=== PATIENT | male | born 1955 | race Caucasian/White ===

== ENCOUNTER 2023-08-26 18:57 | Observation (INO) ==
[2023-08-26] MEDS: NS 500 ML IV 500 ML IV ONE ×2 (19:29→19:56)
--- NOTE | 2023-08-26 19:30 | DR.ABDMALE ---
HPI <Sean Benson - Last Filed: 08/26/23 19:40> Time seen Time Seen by Provider: 08/26/23 19:28 PCP Primary Care Physician: LISA/Alverto Complaint Chief Complaint Doctors Comments: 68-year-old male presents for evaluation. Has been feeling poorly over the past week. Having several episodes of dizziness lightheadedness, worse when he stands and attempts to walk. Did have vomiting several episodes 2 days ago. No problems with his bowels or his bladder. He denies fevers or chills. Has been having heartburn, located at the epigastric region, off/on, burning sensation. Denies upper respiratory illness, no change in cough (he is a smoker). Was diagnosed with a aortic abdominal aneurysm approximately 1 year ago in [place], was told with it was small, has not had it evaluated since. Chief Complaint:: pt amb to triage with c/o dizziness that worsens when he stands up, heartburn, sleepy all the time, no energy, abd pain, pt reports [facility] but felt he could not wait until then, pt visably unsteady when walking, take to room 1 from triage Reviewed Nurses Notes Review: Yes Source History provided by:: Patient, spouse Mode of arrival Mode of Arrival: Ambulatory Timing Onset of Chief Complaint: 08/19/23 PMH <Sean Ocampolorenza - Last Filed: 08/26/23 19:40> PMH Past Medical History: Yes Past Medical History: Coronary Artery Disease, Dyslipidemia and Hypertension Past Medical History Comment: AAA, Bladder CA Past Surgical History: Yes Past Surgical History Comment: cardiac cath Family History History of Family Medical Conditions: Yes Family Medical History: Diabetes Mellitus, DC, Sudden Cardiac and Hypertension Social History Does patient currently use any type of tobacco product: Yes Have you used tobacco products in the last 12 months: Yes Type of Tobacco Use: Cigarettes Does any household member use tobacco: Yes Alcohol Use: None Do you use any recreational Drugs:: No Lives With: Spouse Lives Where: Home Infectious screening Have you traveled outside the country in the last 6 months?: No Isolation: Standard ROS <Sean Ocampolorenza - Last Filed: 08/26/23 19:40> Review of Systems Constitutional: Weakness Eyes: No Symptoms Reported ENTM: No Symptoms Reported Respiratoy: No Symptoms Reported Cardiovascular: No Symptoms Reported Gastrointestinal/Abdominal: Abdominal Pain, Nausea and Vomiting Genitourinary: No Symptoms Reported Neurological: Weakness and Dizziness Musculoskeletal: No Symptoms Reported Integumentary: No Symptoms Reported Hematologic/Lymphatic: No Symptoms Reported Psychiatric: No Symptoms Reported All Other Systems: Reviewed and Negative PE <Sean Benson - Last Filed: 08/26/23 19:40> Vital Signs Vital Signs: Temp Pulse Resp BP Pulse Ox O2 Del Method 08/26/23 23:00 95/63 08/26/23 23:00 70 22 98 08/26/23 22:45 74 21 97 08/26/23 22:40 74 21 98 08/26/23 22:40 93/53 08/26/23 22:30 76 16 98 08/26/23 22:20 76 18 96 08/26/23 22:20 95/57 08/26/23 22:15 79 20 96 08/26/23 22:00 76 17 95 08/26/23 22:00 90/55 08/26/23 21:45 78 17 96 08/26/23 21:40 81 18 97 08/26/23 21:40 97/57 08/26/23 21:30 77 16 97 08/26/23 21:20 77 20 96 08/26/23 21:20 94/58 08/26/23 21:15 73 20 97 08/26/23 21:04 72 19 98 08/26/23 21:04 91/56 08/26/23 21:04 91/56 08/26/23 21:02 82 20 98 08/26/23 20:45 79 28 H 98 08/26/23 20:40 77 19 98 08/26/23 20:40 91/53 08/26/23 20:30 77 21 97 08/26/23 20:20 78 24 96 08/26/23 20:20 86/60 08/26/23 20:15 80 27 H 97 08/26/23 20:00 85/55 08/26/23 20:00 77 22 96 08/26/23 19:47 80 96 08/26/23 19:47 82/51 08/26/23 19:46 81 95 08/26/23 19:30 78/53 08/26/23 19:10 71/44 08/26/23 19:09 97.6 F 100 H 18 86/54 95 Room Air General General Appearance: Alert and In No Apparent Distress Eyes Eye exam: PERRL and EOMI ENT ENT Exam: Normal Exam, Normal Oropharynx and TM's Normal Bilaterally Neck Neck Exam: Normal Inspection and Full ROM Respiratory Respiratory Exam: Normal Lung Sounds Bilat; negative Accessory Muscle Use or Respiratory Distress Cardiovascular Cardiovascular Exam: Regular Rate, Normal Rhythm and Normal Heart Sounds Abdominal Exam Abdominal Exam: Normal Bowel Sounds, Soft and Tenderness (central abdomen, no guarding or rebound. ) Back Back Exam: Normal Inspection; negative (R) CVA Tenderness or (L) CVA Tenderness Extremeties Extremities Exam: Normal Inspection and Full ROM; negative Edema Neurologic Neurological Exam: Alert, Oriented X3 and CN II-XII Intact; negative Motor Sensory Deficit Skin Skin Exam: Warm and Dry <Shilpa Varghese - Last Filed: 08/27/23 00:59> Vital Signs Vital Signs: Temp Pulse Resp BP Pulse Ox O2 Del Method 08/26/23 23:00 95/63 08/26/23 23:00 70 22 98 08/26/23 22:45 74 21 97 08/26/23 22:40 74 21 98 08/26/23 22:40 93/53 08/26/23 22:30 76 16 98 08/26/23 22:20 76 18 96 08/26/23 22:20 95/57 08/26/23 22:15 79 20 96 08/26/23 22:00 76 17 95 08/26/23 22:00 90/55 08/26/23 21:45 78 17 96 08/26/23 21:40 81 18 97 08/26/23 21:40 97/57 08/26/23 21:30 77 16 97 08/26/23 21:20 77 20 96 08/26/23 21:20 94/58 08/26/23 21:15 73 20 97 08/26/23 21:04 72 19 98 08/26/23 21:04 91/56 08/26/23 21:04 91/56 08/26/23 21:02 82 20 98 08/26/23 20:45 79 28 H 98 08/26/23 20:40 77 19 98 08/26/23 20:40 91/53 08/26/23 20:30 77 21 97 08/26/23 20:20 78 24 96 08/26/23 20:20 86/60 08/26/23 20:15 80 27 H 97 08/26/23 20:00 85/55 08/26/23 20:00 77 22 96 08/26/23 19:47 80 96 08/26/23 19:47 82/51 08/26/23 19:46 81 95 08/26/23 19:30 78/53 08/26/23 19:10 71/44 08/26/23 19:09 97.6 F 100 H 18 86/54 95 Room Air COURSE <Seantommy Benson - Last Filed: 08/26/23 19:40> Treatment Treatment: 68-year-old male, ill over the past week, having episodes of lightheadedness dizziness, worse with standing. At triage patient had a bit of an elevated blood pressure, but when he stood up to come back to the room, he dropped his blood pressure significantly. Currently no distress. Workup initiated. Patient given IV fluids. Patient will be signed over to my relief physician. <Shilpa Varghese - Last Filed: 08/27/23 00:59> Treatment Treatment: 68-year-old male, ill over the past week, having episodes of lightheadedness dizziness, worse with standing. At triage patient had a bit of an elevated blood pressure, but when he stood up to come back to the room, he dropped his blood pressure significantly. Currently no distress. Workup initiated. Patient given IV fluids. Patient will be signed over to my relief physician. Pt remains hypotensive although he's resting comfortably. CT c/w duodenitis; admits with abx and re-hydration. ROR <Sean Benson - Last Filed: 08/26/23 19:40> Labs Reviewed 08/26/23 19:25 08/26/23 19:56 Laboratory: WBC 9.7 X10^3/uL (3.6-10.0) 08/26/23 19:25 RBC 4.73 X10^6/uL (4.7-6.0) 08/26/23 19:25 Hgb 15.3 g/dL (13.5-18.0) 08/26/23 19:25 Hct 44.6 % (42.0-54.0) 08/26/23 19:25 MCV 94.3 fL (80.0-100.0) 08/26/23 19:25 MCH 32.4 pg (27.0-34.0) 08/26/23: MCHC 34.3 g/dL (33.0-35.0) 08/26/23 19:25 RDW 13.9 % (11.6-16.5) 08/26/23: Plt Count 316 X10^3/uL (150.0-450.0) 08/26/23 19:25 MPV 7.9 fL (7.4-11.0) 08/26/23 19:25 Neut % (Auto) 56.1 % (42.0-75.0) 08/26/23: Lymph % (Auto) 32.4 % (21.0-51.0) 08/26/23: [place] % (Auto) 9.2 % (0.0-13.0) 08/26/23 19:25 Eos % (Auto) 1.2 % (0.9-2.9) 08/26/23 19:25 Baso % (Auto) 1.1 % (0.2-1.0) H 08/26/23 19:25 Neut # (Auto) 5.5 x10^3/uL (2.2-4.8) H 08/26/23 19:25 Lymph # (Auto) 3.1 X10^3/uL (1.3-2.9) H 08/26/23 19:25 [place] # (Auto) 0.9 x10^3/uL (0.3-0.8) H 08/26/23 19:25 Eos # (Auto) 0.1 x10^3/uL (0.0-0.2) 08/26/23:25 Baso # (Auto) 0.1 X10^3/uL (0.0-0.1) 08/26/23: Absolute Nucleated RBC 0.2 /100WBC 08/26/23 19:25 Sodium 132 mmol/L (136-145) L 08/26/23:56 Corrected Sodium 132 mmol/L (136-145) L 08/26/23 19:56 Potassium 4.5 mmol/L (3.5-5.1) 08/26/23 19:56 Chloride 99 mmol/L (98-107) 08/26/23 19:56 Carbon Dioxide 28.0 mmol/L (21-32) 08/26/23 19:56 BUN 48 mg/dL (7-18) H 08/26/23 19:56 Creatinine 2.15 mg/dL (0.70-1.30) H 08/26/23 19:56 Est GFR (MDRD) Af Amer 39 (>60) L 08/26/23 19:56 Est GFR (MDRD) Non-Af 32 (>60) L 08/26/23 19:56 Glucose 120 mg/dL (65-99) H 08/26/23 19:56 Lactic Acid 1.5 mmol/L (0.4-2.0) 08/26/23 19:56 Calcium 8.3 mg/dL (8.5-10.1) L 08/26/23 19:56 Corrected Calcium 9.3 mg/dL (8.5-10.1) 08/26/23 19:56 Total Bilirubin 0.30 mg/dL (0.2-1.0) 08/26/23 19:56 AST 14 Units/L (15-37) L 08/26/23 19:56 ALT 9 Units/L (12-78) L 08/26/23 19:56 Alkaline Phosphatase 53 Units/L (46-116) 08/26/23 19:56 Creatine Kinase 69 Units/L (39-308) 08/26/23 19:56 Troponin I High Sens 7.8 ng/L (4.0-60.0) 08/26/23 19:56 Total Protein 6.9 g/dL (6.4-8.2) 08/26/23 19:56 Albumin 2.8 g/dL (3.4-5.0) L 08/26/23 19:56 Globulin 4.1 g/dL (2.5-4.5) 08/26/23 19:56 Albumin/Globulin Ratio 0.7 Ratio (1.1-2.1) L 08/26/23 19:56 Specimen Type Clean catch urine 08/26/23 22:39 Urine Color Yellow (YELLOW) 08/26/23 22:39 Urine Appearance Clear (CLEAR) 08/26/23 22:39 Urine pH 5.0 (5.0 - 8.0) 08/26/23 22:39 Ur Specific Bruce 1.015 (1.000-1.030) 08/26/23 22:39 Urine Protein Negative (NEGATIVE) 08/26/23 22:39 Urine Glucose (UA) Negative (NEGATIVE) 08/26/23 22:39 Urine Ketones Negative (NEGATIVE) 08/26/23 22:39 Urine Blood 4+ (NEGATIVE) 08/26/23 22:39 Urine Nitrite Negative (NEGATIVE) 08/26/23 22:39 Urine Bilirubin Negative (NEGATIVE) 08/26/23 22:39 Urine Urobilinogen Normal (NORMAL) 08/26/23 22:39 Ur Leukocyte Esterase Negative (NEGATIVE) 08/26/23 22:39 Urine RBC 3-5 /HPF (0-3) A 08/26/23 22:39 Urine WBC 0-2 /HPF (0-5) 08/26/23 22:39 Ur Squamous Epith Cells Rare /HPF (NEGATIVE) 08/26/23 22:39 Urine Bacteria Negative /HPF (NEGATIVE) 08/26/23 22:39 Ur Culture Indicated? No/not indicated 08/26/23 22:39 EKG Rate: 85 [place]: Normal Rhythm: NSR ST: Nonsp <Shilpa Varghese - Last Filed: 08/27/23 00:59> Labs Reviewed Laboratory Results Reviewed?: Yes Laboratory: WBC 9.7 X10^3/uL (3.6-10.0) 08/26/23 19: RBC 4.73 X10^6/uL (4.7-6.0) 08/26/23 19: Hgb 15.3 g/dL (13.5-18.0) 08/26/23 19: Hct 44.6 % (42.0-54.0) 08/26/23 19: MCV 94.3 fL (80.0-100.0) 08/26/23 19: MCH 32.4 pg (27.0-34.0) 08/26/23 19: MCHC 34.3 g/dL (33.0-35.0) 08/26/23: RDW 13.9 % (11.6-16.5) 08/26/23 19:25 Plt Count 316 X10^3/uL (150.0-450.0) 08/26/23 19:25 MPV 7.9 fL (7.4-11.0) 08/26/23 19:25 Neut % (Auto) 56.1 % (42.0-75.0) 08/26/23 19:25 Lymph % (Auto) 32.4 % (21.0-51.0) 08/26/23 19:25 [place] % (Auto) 9.2 % (0.0-13.0) 08/26/23 19:25 Eos % (Auto) 1.2 % (0.9-2.9) 08/26/23 19:25 Baso % (Auto) 1.1 % (0.2-1.0) H 08/26/23 19:25 Neut # (Auto) 5.5 x10^3/uL (2.2-4.8) H 08/26/23 19:25 Lymph # (Auto) 3.1 X10^3/uL (1.3-2.9) H 08/26/23 19:25 [place] # (Auto) 0.9 x10^3/uL (0.3-0.8) H 08/26/23 19:25 Eos # (Auto) 0.1 x10^3/uL (0.0-0.2) 08/26/23 19:25 Baso # (Auto) 0.1 X10^3/uL (0.0-0.1) 08/26/23 19:25 Absolute Nucleated RBC 0.2 /100WBC 08/26/23 19:25 Sodium 132 mmol/L (136-145) L 08/26/23 19:56 Corrected Sodium 132 mmol/L (136-145) L 08/26/23 19:56 Potassium 4.5 mmol/L (3.5-5.1) 08/26/23 19:56 Chloride 99 mmol/L (98-107) 08/26/23 19:56 Carbon Dioxide 28.0 mmol/L (21-32) 08/26/23 19:56 BUN 48 mg/dL (7-18) H 08/26/23 19:56 Creatinine 2.15 mg/dL (0.70-1.30) H 08/26/23 19:56 Est GFR (MDRD) Af Amer 39 (>60) L 08/26/23 19:56 Est GFR (MDRD) Non-Af 32 (>60) L 08/26/23 19:56 Glucose 120 mg/dL (65-99) H 08/26/23 19:56 Lactic Acid 1.5 mmol/L (0.4-2.0) 08/26/23 19:56 Calcium 8.3 mg/dL (8.5-10.1) L 08/26/23 19:56 Corrected Calcium 9.3 mg/dL (8.5-10.1) 08/26/23 19:56 Total Bilirubin 0.30 mg/dL (0.2-1.0) 08/26/23 19:56 AST 14 Units/L (15-37) L 08/26/23 19:56 ALT 9 Units/L (12-78) L 08/26/23 19:56 Alkaline Phosphatase 53 Units/L (46-116) 08/26/23 19:56 Creatine Kinase 69 Units/L (39-308) 08/26/23 19:56 Troponin I High Sens 7.8 ng/L (4.0-60.0) 08/26/23 19:56 Total Protein 6.9 g/dL (6.4-8.2) 08/26/23 19:56 Albumin 2.8 g/dL (3.4-5.0) L 08/26/23 19:56 Globulin 4.1 g/dL (2.5-4.5) 08/26/23 19:56 Albumin/Globulin Ratio 0.7 Ratio (1.1-2.1) L 08/26/23 19:56 Specimen Type Clean catch urine 08/26/23 22:39 Urine Color Yellow (YELLOW) 08/26/23 22:39 Urine Appearance Clear (CLEAR) 08/26/23 22:39 Urine pH 5.0 (5.0 - 8.0) 08/26/23 22:39 Ur Specific [place] 1.015 (1.000-1.030) 08/26/23 22:39 Urine Protein Negative (NEGATIVE) 08/26/23 22:39 Urine Glucose (UA) Negative (NEGATIVE) 08/26/23 22:39 Urine Ketones Negative (NEGATIVE) 08/26/23 22:39 Urine Blood 4+ (NEGATIVE) 08/26/23 22:39 Urine Nitrite Negative (NEGATIVE) 08/26/23 22:39 Urine Bilirubin Negative (NEGATIVE) 08/26/23 22:39 Urine Urobilinogen Normal (NORMAL) 08/26/23 22:39 Ur Leukocyte Esterase Negative (NEGATIVE) 08/26/23 22:39 Urine RBC 3-5 /HPF (0-3) A 08/26/23 22:39 Urine WBC 0-2 /HPF (0-5) 08/26/23 22:39 Ur Squamous Epith Cells Rare /HPF (NEGATIVE) 08/26/23 22:39 Urine Bacteria Negative /HPF (NEGATIVE) 08/26/23 22:39 Ur Culture Indicated? No/not indicated 08/26/23 22:39 XRAY XRAY Interpreted by: Radiologist X-ray Results: ct abd/pelvis w/o: Inflammation involving the descending duodenal worrisome for duodenitis. 2. Gallbladder wall thickening and stone in the fundus. Possible chronic cholecystitis. 3. Small hiatal hernia. Opioid <Sean Benson - Last Filed: 08/26/23 19:40> Opioid Risk Tool Total: 0 Total Score Risk Category: Low Risk Copyright: Jamal KRUGER predicting aberrant behaviors <Shilpa Varghese - Last Filed: 08/27/23 00:59> Opioid Risk Tool Total: 0 Total Score Risk Category: Low Risk Discharge Plan Diagnosis Discharge Problem: Orthostatic hypotension, Hematuria, Abdominal pain, epigastric, Dehydration, Cholelithiasis, Duodenitis Discharge Plan Patient Disposition: ADMITTED INPATIENT Condition: Stable
[2023-08-26 19:37] LABS: BASOPHILS # (AUTO) 0.1 X10^3/uL (0.0-0.1); BASOPHILS % (AUTO) 1.1 % (0.2-1.0); EOSINOPHILS # (AUTO) 0.1 x10^3/uL (0.0-0.2); EOSINOPHILS % (AUTO) 1.2 % (0.9-2.9); HEMATOCRIT 44.6 % (42.0-54.0); HEMOGLOBIN 15.3 g/dL (13.5-18.0); LYMPHOCYTES # (AUTO) 3.1 X10^3/uL (1.3-2.9); LYMPHOCYTES % (AUTO) 32.4 % (21.0-51.0); MEAN CORPUSCULAR HEMOGLOBIN 32.4 pg (27.0-34.0); MEAN CORPUSCULAR HGB CONC 34.3 g/dL (33.0-35.0); MEAN CORPUSCULAR VOLUME 94.3 fL (80.0-100.0); MEAN PLATELET VOLUME 7.9 fL (7.4-11.0); MONOCYTES # (AUTO) 0.9 x10^3/uL (0.3-0.8); MONOCYTES % (AUTO) 9.2 % (0.0-13.0); NEUTROPHILS # (AUTO) 5.5 x10^3/uL (2.2-4.8); NEUTROPHILS % (AUTO) 56.1 % (42.0-75.0); PLATELET COUNT 316 X10^3/uL (150.0-450.0); RED BLOOD COUNT 4.73 X10^6/uL (4.7-6.0); RED CELL DISTRIBUTION WIDTH 13.9 % (11.6-16.5); WHITE BLOOD COUNT 9.7 X10^3/uL (3.6-10.0)
--- NOTE | 2023-08-26 19:37 | EKG ---
Test Reason : weakness, dizziness Blood Pressure : */* mmHG Vent. Rate : 85 BPM Atrial Rate : 85 BPM P-R Int : 142 ms QRS Dur : 78 ms QT Int : 330 ms P-R-T Axes : 81 77 77 degrees QTc Int : 392 ms Normal sinus rhythm Normal ECG No previous ECGs available Confirmed by Kelton Ortiz MD ([id number]) on 08/27/2023 10:17:40 AM Referred By: Confirmed By: Kelton Ortiz MD
[2023-08-26 20:20] LABS: ALBUMIN 2.8 g/dL (3.4-5.0); CALCIUM 8.3 mg/dL (8.5-10.1); COR CA(FOR HYPOALB) 9.3 mg/dL (8.5-10.1); CREATININE 2.15 mg/dL (0.70-1.30); POTASSIUM 4.5 mmol/L (3.5-5.1); TOTAL PROTEIN 6.9 g/dL (6.4-8.2)
[2023-08-26] MEDS: NS 1,000 ML IV 1,000 ML IV ONE (21:06)
--- NOTE | 2023-08-26 21:46 | CT ---
EXAM:ABDOMEN/PELVIS W/O CONHISTORY:hypotension, abd pain;COMPARISON:None.TECHNIQUE:Nonenhanc ed spiral CT imaging was performed through the abdomen and pelvis and axial, coronal, and sagittal CT images were generated.FINDINGS:There is some minor non-specific right base opacity, probably atelectasis. Heart size is normal. There is a small hiatal hernia and some wall thickening in the distal esophagus. Stomach is otherwise grossly unremarkable. There is wall thickening in the descending duodenal and there is inflammation of the surrounding fat and this could be duodenitis. Liver is normal. The gallbladder contains a stone at the fundus and is somewhat contracted otherwise unremarkable. The pancreas is normal. The spleen and adrenal glands are normal. The kidneys are normal in size and enhancement without mass, stone, or hydronephrosis. The small bowel is grossly unremarkable. The appendix is normal. Large bowel is normal. The urinary bladder and prostate are normal. There is moderate systemic atherosclerosis. There is degeneration in the spine and in the hip joints but there is no worrisome bone marrow lesion.IMPRESSION:1. Inflammation involving the descending duodenal worrisome for duodenitis.2. Gallbladder wall thickening and stone in the fundus. Possible chronic cholecystitis.3. Small hiatal hernia.THIS IS AN ELECTRONICALLY VERIFIED FINAL REPORT08/26/2023 9:43 PM - Electronically signed by Nawaf Mckeon MD
[2023-08-26 22:55] LABS: BILIRUBIN,URINE NEGATIVE (NEGATIVE); BLOOD/HEMOGLOBIN,URINE 4+ (NEGATIVE); GLUCOSE, URINE NEGATIVE (NEGATIVE); KETONES,URINE NEGATIVE (NEGATIVE); LEUKOCYTE ESTERASE ,URINE NEGATIVE (NEGATIVE); NITRITES,URINE NEGATIVE (NEGATIVE); PROTEIN,URINE NEGATIVE (NEGATIVE); UROBILINOGEN,URINE NORMAL (NORMAL)
[2023-08-26 23:05] LABS: APPEARANCE,URINE CLEAR (CLEAR); BACTERIA,URINE NEGATIVE /HPF (NEGATIVE); COLOR,URINE YELLOW (YELLOW); SQUAMOUS EPITHELIAL CELL,UR RARE /HPF (NEGATIVE)
[2023-08-27] MEDS: FLAGYL IV PREMIX 500 MG BAG 500 MG/100 ML BAG IV SCH (00:18)
[2023-08-27] MEDS: ZOFRAN INJ 4 MG VIAL IVP ONE (01:49)
[2023-08-27] MEDS: NS 1,000 ML IV 1,000 ML IV SCH (02:23)
[2023-08-27] MEDS: PROTONIX INJ 40 MG VIAL IVP SCH (02:24)
[2023-08-27] MEDS ORDERED: FLAGYL IV PREMIX 500 MG BAG 500 MG/100 ML BAG IV SCH (03:00)
[2023-08-27 03:03] VITALS: BMI 28.4
[2023-08-27 05:34] LABS: BASOPHILS # (AUTO) 0.1 X10^3/uL (0.0-0.1); BASOPHILS % (AUTO) 0.8 % (0.2-1.0); EOSINOPHILS # (AUTO) 0.1 x10^3/uL (0.0-0.2); EOSINOPHILS % (AUTO) 1.8 % (0.9-2.9); HEMOGLOBIN 13.6 g/dL (13.5-18.0); MEAN CORPUSCULAR HEMOGLOBIN 31.9 pg (27.0-34.0); MEAN CORPUSCULAR HGB CONC 33.9 g/dL (33.0-35.0); MEAN CORPUSCULAR VOLUME 94.2 fL (80.0-100.0); MEAN PLATELET VOLUME 7.6 fL (7.4-11.0); MONOCYTES # (AUTO) 0.7 x10^3/uL (0.3-0.8); NEUTROPHILS # (AUTO) 4.3 x10^3/uL (2.2-4.8); NEUTROPHILS % (AUTO) 52.4 % (42.0-75.0); PLATELET COUNT 240 X10^3/uL (150.0-450.0); RED BLOOD COUNT 4.25 X10^6/uL (4.7-6.0); RED CELL DISTRIBUTION WIDTH 13.3 % (11.6-16.5); WHITE BLOOD COUNT 8.2 X10^3/uL (3.6-10.0)
[2023-08-27 05:55] LABS: ALANINE AMINOTRANSFERASE 9 Units/L (12-78); ALBUMIN 2.8 g/dL (3.4-5.0); ALKALINE PHOSPHATASE 53 Units/L (46-116); ASPARTATE AMINO TRANSFERASE 19 Units/L (15-37); BLOOD UREA NITROGEN 43 mg/dL (7-18); CALCIUM 8.6 mg/dL (8.5-10.1); CARBON DIOXIDE 26.6 mmol/L (21-32); CHLORIDE 103 mmol/L (98-107); COR CA(FOR HYPOALB) 9.6 mg/dL (8.5-10.1); CREATININE 1.55 mg/dL (0.70-1.30); GLUCOSE 95 mg/dL (65-99); POTASSIUM 4.6 mmol/L (3.5-5.1); SODIUM 135 mmol/L (136-145); TOTAL PROTEIN 6.9 g/dL (6.4-8.2); eGFR NON BLACK RACES 47 (>60)
--- NOTE | 2023-08-27 06:16 | RAD ---
EXAM:CHEST, 1 VIEWHISTORY:c/o dizziness that worsens when he stands up, heartburn, sleepy all the time, no energy, abd pain, pt [facility] felt [facility] could not wait until [facility];COMPARISON:NoneFINDINGS:The cardiomediastinal silhouette is normal in size.Portions of the right lung and bilateral costophrenic angles are not included in the field of view. No acute airspace disease. No pneumothorax or effusion.No acute osseous abnormality.IMPRESSION:No acute cardiopulmonary disease.THIS IS AN ELECTRONICALLY VERIFIED FINAL REPORT08/27/2023 6:13 AM - Electronically signed by Luis Enrique Simon MD
[2023-08-27] MEDS: NORCO 7.5/325 MG TAB PO PRN (11:54)
[2023-08-27] MEDS: NS 1,000 ML IV 1,000 ML IV ONE (11:54)
[2023-08-27] MEDS: NS 500 ML IV 500 ML IV ONE (14:10)
[2023-08-27] MEDS: NS 500 ML IV 0 ML IV ONE (14:10)
[2023-08-27] MEDS: OMNIPAQUE 350 mg/mL 100 mL BTL 100 ML ONE (14:10)
--- NOTE | 2023-08-27 18:40 | DR.H&P ---
H&P History & Physical for Day of: H&P Date: 08/27/23 Chief Complaint Chief Complaint: The patient ambulated to triage complaining of worsening dizziness upon standing up, heartburn, constant drowsiness, lack of energy, and abdominal pain. He mentioned having an appointment at the [place] tomorrow but felt he could not wait until then. History of Present Illness History of Present Illness: This is a pleasant 68-year-old white male who presented to the [facility] emergency department for evaluation due to feeling sick over the past week. He has experienced several episodes of dizziness and lightheadedness, which worsen when he stands and attempts to walk. He had episodes of vomiting 2 days ago. His bowels or bladder have no issues, and he denies experiencing fevers or chills. He has been having heartburn with a burning sensation in the epigastric region, off and on. He denies upper respiratory illness and reports that there has been no change in his cough (he is a smoker). He was diagnosed with an aortic abdominal aneurysm about 1 year ago in [place]. He was told it was small but has not been evaluated since. The patient had a CT scan of the abdomen without contrast that showed inflammation involving the descending duodenum, worrisome for duodenitis, gallbladder wall thickening, a stone in the fundus, and possible chronic cholecystitis. It also showed a small hiatal hernia. The patient is also seen to be dehydrated with a creatinine of slightly over 2. This morning the patient is feeling much better and is not having any significant abdominal pain at this time. Palpation does not elicit any right u pper quadrant pain but he does have very mild epigastric tenderness to palpation. The patient states that he feels like he is up to going home, and I was initially going to let him go home but he is still hypotensive this morning. We decided to keep him and give him IV fluid today and repeat his labs tomorrow morning. If his dehydration has resolved and he is no longer hypotensive, he will be stable enough to be discharged home. Past Medical History Past Medical History: Coronary Artery Disease, Dyslipidemia and Hypertension Past Surgical History Surgical History: Other Family History Family Medical History: Diabetes Mellitus, [place], Coronary Artery Disease, Heart Failure and Hypertension Social History Does patient currently use any type of tobacco product: Yes Have you used tobacco products in the last 12 months: Yes Type of Tobacco Use: Cigarettes How many years tobacco product used: 58 Does any household member use tobacco: Yes Alcohol Use: Occasionally Drug Use: None Medications Home Medications: Home Medications Medication Instructions Recorded Confirmed Type acetaminophen 500 mg tablet 500 mg PO BID 08/26/23 08/26/23 History aspirin 81 mg chewable tablet 81 mg PO DAILY 08/26/23 08/26/23 History cyclobenzaprine 10 mg tablet 10 mg PO DAILY 08/26/23 08/26/23 History gabapentin 100 mg capsule 100 mg PO BID 08/26/23 08/26/23 History hydrocodone 10 mg-acetaminophen 1 tab PO BID 08/26/23 08/26/23 History 325 mg tablet lisinopril 10 mg tablet 10 mg PO DAILY 08/26/23 08/26/23 History simvastatin 20 mg tablet 20 mg PO DAILY 08/26/23 08/26/23 History trazodone 100 mg tablet 100 mg PO HS 08/26/23 08/26/23 History Allergies Allergies Allergy/AdvReac Type Severity Reaction Status Date / Time No Known Allergies Allergy Verified 08/26/23 19:22 Labs 08/27/23 04:13 08/27/23 04:13 Labs: Laboratory WBC 8.2 X10^3/uL (3.6-10.0) 08/27/23 04:13 RBC 4.25 X10^6/uL (4.7-6.0) L 08/27/23 04:13 Hgb 13.6 g/dL (13.5-18.0) 08/27/23 04:13 Hct 40.0 % (42.0-54.0) L 08/27/23 04:13 MCV 94.2 fL (80.0-100.0) 08/27/23 04:13 MCH 31.9 pg (27.0-34.0) 08/27/23 04:13 MCHC 33.9 g/dL (33.0-35.0) 08/27/23 04:13 RDW 13.3 % (11.6-16.5) 08/27/23 04:13 Plt Count 240 X10^3/uL (150.0-450.0) 08/27/23 04:13 MPV 7.6 fL (7.4-11.0) 08/27/23 04:13 Neut % (Auto) 52.4 % (42.0-75.0) 08/27/23 04:13 Lymph % (Auto) 37.0 % (21.0-51.0) 08/27/23 04:13 [place] % (Auto) 8.0 % (0.0-13.0) 08/27/23 04:13 Eos % (Auto) 1.8 % (0.9-2.9) 08/27/23 04:13 Baso % (Auto) 0.8 % (0.2-1.0) 08/27/23 04:13 Neut # (Auto) 4.3 x10^3/uL (2.2-4.8) 08/27/23 04:13 Lymph # (Auto) 3.0 X10^3/uL (1.3-2.9) H 08/27/23 04:13 [place] # (Auto) 0.7 x10^3/uL (0.3-0.8) 08/27/23 04:13 Eos # (Auto) 0.1 x10^3/uL (0.0-0.2) 08/27/23 04:13 Baso # (Auto) 0.1 X10^3/uL (0.0-0.1) 08/27/23 04:13 Absolute Nucleated RBC 0.0 /100WBC 08/27/23 04:13 Sodium 135 mmol/L (136-145) L 08/27/23 04:13 Corrected Sodium TNP 08/27/23 04:13 Potassium 4.6 mmol/L (3.5-5.1) 08/27/23 04:13 Chloride 103 mmol/L (98-107) 08/27/23 04:13 Carbon Dioxide 26.6 mmol/L (21-32) 08/27/23 04:13 BUN 43 mg/dL (7-18) H 08/27/23 04:13 Creatinine 1.55 mg/dL (0.70-1.30) H 08/27/23 04:13 Est GFR (MDRD) Af Amer 57 (>60) L 08/27/23 04:13 Est GFR (MDRD) Non-Af 47 (>60) L 08/27/23 04:13 Glucose 95 mg/dL (65-99) 08/27/23 04:13 Lactic Acid 1.5 mmol/L (0.4-2.0) 08/26/23 19:56 Calcium 8.6 mg/dL (8.5-10.1) 08/27/23 04:13 Corrected Calcium 9.6 mg/dL (8.5-10.1) 08/27/23 04:13 Total Bilirubin 0.40 mg/dL (0.2-1.0) 08/27/23 04:13 AST 19 Units/L (15-37) 08/27/23 04:13 ALT 9 Units/L (12-78) L 08/27/23 04:13 Alkaline Phosphatase 53 Units/L (46-116) 08/27/23 04:13 Creatine Kinase 69 Units/L (39-308) 08/26/23 19:56 Troponin I High Sens 7.8 ng/L (4.0-60.0) 08/26/23 19:56 Total Protein 6.9 g/dL (6.4-8.2) 08/27/23 04:13 Albumin 2.8 g/dL (3.4-5.0) L 08/27/23 04:13 Globulin 4.1 g/dL (2.5-4.5) 08/27/23 04:13 Albumin/Globulin Ratio 0.7 Ratio (1.1-2.1) L 08/27/23 04:13 Specimen Type Clean catch urine 08/26/23 22:39 Urine Color Yellow (YELLOW) 08/26/23 22:39 Urine Appearance Clear (CLEAR) 08/26/23 22:39 Urine pH 5.0 (5.0 - 8.0) 08/26/23 22:39 Ur Specific [place] 1.015 (1.000-1.030) 08/26/23 22:39 Urine Protein Negative (NEGATIVE) 08/26/23 22:39 Urine Glucose (UA) Negative (NEGATIVE) 08/26/23 22:39 Urine Ketones Negative (NEGATIVE) 08/26/23 22:39 Urine Blood 4+ (NEGATIVE) 08/26/23 22:39 Urine Nitrite Negative (NEGATIVE) 08/26/23 22:39 Urine Bilirubin Negative (NEGATIVE) 08/26/23 22:39 Urine Urobilinogen Normal (NORMAL) 08/26/23 22:39 Ur Leukocyte Esterase Negative (NEGATIVE) 08/26/23 22:39 Urine RBC 3-5 /HPF (0-3) A 08/26/23 22:39 Urine WBC 0-2 /HPF (0-5) 08/26/23 22:39 Ur Squamous Epith Cells Rare /HPF (NEGATIVE) 08/26/23 22:39 Urine Bacteria Negative /HPF (NEGATIVE) 08/26/23 22:39 Ur Culture Indicated? No/not indicated 08/26/23 22:39 Review of Systems Constitutional: Weakness and Malaise; denies Chills or Sweats Eyes: No Symptoms Reported ENT: No Symptoms Reported Respiratory: No Symptoms Reported Cardiovascular: No Symptoms Reported Gastrointestinal: Nausea and Abdominal Pain; denies Vomiting, Diarrhea, Constipation, Melena or Hematochezia Genitourinary: denies Dysuria, Frequency, Incontinence, Hematuria or Retention Musculoskeletal: No Symptoms Reported Skin: No Symptoms Reported Neurological: No Symptoms Reported Physical Exam Vital Signs: Vital Signs Pulse Rate 77 Pulse Rate 68 Pulse Rate 69 Pulse Rate 81 Pulse Rate 85 Pulse Rate 87 Pulse Rate 66 Pulse Rate 71 Pulse Rate 73 Pulse Rate 79 Pulse Rate 86 Pulse Rate 82 Pulse Rate 82 Pulse Rate 87 Respiratory Rate 29 Respiratory Rate 22 Respiratory Rate 18 Respiratory Rate 19 Respiratory Rate 18 Respiratory Rate 39 Respiratory Rate 27 Respiratory Rate 17 Respiratory Rate 24 Respiratory Rate 20 Respiratory Rate 21 Respiratory Rate 20 Respiratory Rate 22 Respiratory Rate 26 Respiratory Rate 23 Respiratory Rate 23 Blood Pressure 128/78 Blood Pressure 109/67 Blood Pressure 98/63 Blood Pressure 93/60 Blood Pressure 106/59 Blood Pressure 119/67 Blood Pressure 89/59 Blood Pressure 93/51 Blood Pressure 93/51 O2 Sat by Pulse Oximetry 97 O2 Sat by Pulse Oximetry 98 O2 Sat by Pulse Oximetry 97 O2 Sat by Pulse Oximetry 96 O2 Sat by Pulse Oximetry 96 O2 Sat by Pulse Oximetry 99 O2 Sat by Pulse Oximetry 98 O2 Sat by Pulse Oximetry 94 O2 Sat by Pulse Oximetry 94 O2 Sat by Pulse Oximetry 94 O2 Sat by Pulse Oximetry 94 O2 Sat by Pulse Oximetry 96 O2 Sat by Pulse Oximetry 95 O2 Sat by Pulse Oximetry 96 Oriented: Normal, Time, Person and Place Eyes: Normal Ear: Normal Nose: Normal Throat: Normal Respiratory: Clear Throughout Cardiovascular: Normal Auscultation: Bowel Sounds: Normal Palpation: Normal Tenderness: Epigastric and Mild Skin: Decreased [place] Musculoskeletal: Normal Psychiatric: Normal Mood Description: Calm Affect: Normal Speech Pattern: Clear and Appropriate Assessment/Plan (1) Abdominal pain, epigastric: Status: Acute Plan: IV pantoprazole. (2) Dehydration: Status: Acute Plan: IV hydration. (3) Cholelithiasis: Status: Acute Plan: Monitor. I do not suspect the gallstone was causing the patient any problems at this time. He does not have any symptoms of chronic cholecystitis or biliary dyskinesia symptoms. (4) Duodenitis: Status: Acute Plan: IV metronidazole. (5) Hypotension: Status: Acute Plan: IV fluid hydration. Repeat CMP again tomorrow. Review H&P Reviewed: Yes Patient was examined?: Yes
--- NOTE | 2023-08-27 18:49 | US ---
EXAM:GALL BLADDERHISTORY:HEARTBURN, ABD PAIN; UnavailableCOMPARISON:None.TECHNIQUE:Mul tiple diamond scale and color flow Doppler images of the right upper quadrant were obtained.FINDINGS:The liver exhibits increased echogenicity consistent with fatty infiltration.. No focal intraparenchymal mass or intrahepatic biliary ductal dilatation can be observed. The gallbladder fails to demonstrate evidence for cholelithiasis or layering sludge. The common bile duct is unremarkable measuring 2.9 mm. No pericholecystic fluid or gallbladder wall thickening can be observed. Negative sonographic Urias's sign.The right kidney appears normal in size without focal parenchymal mass or nephrolithiasis. The right kidney measurers 11.5 x 4.7 x 5.7 cm.. No hydronephrosis or perirenal fluid can be observed. Pancreas is obscured by overlying bowel gas.IMPRESSION:Mild hepatic steatosis.No evidence of cholelithiasis or biliary ductal dilatation.THIS IS AN ELECTRONICALLY VERIFIED FINAL REPORT08/27/2023 6:46 PM - Electronically signed by Eliseo Herrera MD
[2023-08-27] MEDS: CONSULT PHARMACY - POTASSIUM & MAGNESIUM XX SCH (18:50)
[2023-08-27] MEDS: DESYREL PO SCH (20:20)
[2023-08-27] MEDS: ZOCOR TAB 20 MG PO SCH (20:20)
[2023-08-27] MEDS: NEURONTIN CAP 100 MG PO SCH (20:20)
[2023-08-28 05:27] LABS: BASOPHILS # (AUTO) 0.1 X10^3/uL (0.0-0.1); BASOPHILS % (AUTO) 1.2 % (0.2-1.0); EOSINOPHILS # (AUTO) 0.2 x10^3/uL (0.0-0.2); EOSINOPHILS % (AUTO) 2.2 % (0.9-2.9); HEMATOCRIT 35.6 % (42.0-54.0); HEMOGLOBIN 11.9 g/dL (13.5-18.0); LYMPHOCYTES # (AUTO) 2.4 X10^3/uL (1.3-2.9); LYMPHOCYTES % (AUTO) 30.1 % (21.0-51.0); MEAN CORPUSCULAR HEMOGLOBIN 31.6 pg (27.0-34.0); MEAN CORPUSCULAR HGB CONC 33.4 g/dL (33.0-35.0); MEAN CORPUSCULAR VOLUME 94.8 fL (80.0-100.0); MEAN PLATELET VOLUME 8.1 fL (7.4-11.0); MONOCYTES # (AUTO) 0.6 x10^3/uL (0.3-0.8); MONOCYTES % (AUTO) 7.7 % (0.0-13.0); NEUTROPHILS # (AUTO) 4.6 x10^3/uL (2.2-4.8); NEUTROPHILS % (AUTO) 58.8 % (42.0-75.0); PLATELET COUNT 234 X10^3/uL (150.0-450.0); RED BLOOD COUNT 3.76 X10^6/uL (4.7-6.0); RED CELL DISTRIBUTION WIDTH 13.4 % (11.6-16.5); WHITE BLOOD COUNT 7.8 X10^3/uL (3.6-10.0)
[2023-08-28 05:42] LABS: ALANINE AMINOTRANSFERASE 10 Units/L (12-78); ALBUMIN 2.6 g/dL (3.4-5.0); ALKALINE PHOSPHATASE 63 Units/L (46-116); ASPARTATE AMINO TRANSFERASE 17 Units/L (15-37); BLOOD UREA NITROGEN 33 mg/dL (7-18); CALCIUM 8.1 mg/dL (8.5-10.1); CARBON DIOXIDE 26.1 mmol/L (21-32); CHLORIDE 106 mmol/L (98-107); COR CA(FOR HYPOALB) 9.2 mg/dL (8.5-10.1); CREATININE 1.19 mg/dL (0.70-1.30); GLUCOSE 106 mg/dL (65-99); MAGNESIUM 1.7 mg/dL (2.0-2.9); POTASSIUM 4.6 mmol/L (3.5-5.1); SODIUM 139 mmol/L (136-145); TOTAL PROTEIN 6.4 g/dL (6.4-8.2); eGFR NON BLACK RACES > 60 (>60)
[2023-08-28 11:33] VITALS: BP 112/75; PULSE 69; RESP 28; TEMP 97.9; O2SAT 99
--- NOTE | 2023-08-28 17:07 | PCM.DCPLAN ---
DISCHARGE SUMMARY Admission Date Date of Admission: 08/26/23 Discharge Date Discharge Date: 08/28/23 Admission Diagnoses (1) Abdominal pain, epigastric: Status: Resolved (2) Dehydration: Status: Resolved (3) Cholelithiasis: Status: Acute (4) Duodenitis: Status: Resolved (5) Hypotension: Status: Resolved Discharge Diagnoses Discharge Diagnosis: Same as above Discharge Medications Discharge Medications: Home Medication List acetaminophen 500 mg tablet 500 mg PO BID 08/26/23 [History] aspirin 81 mg chewable tablet 81 mg PO DAILY 08/26/23 [History] cyclobenzaprine 10 mg tablet 10 mg PO DAILY 08/26/23 [History] gabapentin 100 mg capsule 100 mg PO BID 08/26/23 [History] hydrocodone 10 mg-acetaminophen 325 mg tablet 1 tab PO BID 08/26/23 [History] lisinopril 10 mg tablet 10 mg PO DAILY 08/26/23 [History] simvastatin 20 mg tablet 20 mg PO DAILY 08/26/23 [History] trazodone 100 mg tablet 100 mg PO HS 08/26/23 [History] metronidazole 500 mg tablet 500 mg PO TID #18 tabs 08/28/23 [Rx] Prescriptions: metronidazole [facility] Course Vital Signs: Vital Signs Temperature 97.9 F Temperature 98.2 F Pulse Rate 69 Pulse Rate 77 Pulse Rate 94 Pulse Rate 90 Pulse Rate 85 Respiratory Rate 28 Respiratory Rate 21 Respiratory Rate 42 Respiratory Rate 31 Respiratory Rate 24 Blood Pressure 112/75 Blood Pressure 106/67 Blood Pressure 105/81 Blood Pressure 112/65 O2 Sat by Pulse Oximetry 99 O2 Sat by Pulse Oximetry 97 O2 Sat by Pulse Oximetry 96 O2 Sat by Pulse Oximetry 100 O2 Sat by Pulse Oximetry 98 Latest Lab Results: Laboratory Last Values WBC 7.8 X10^3/uL (3.6-10.0) 08/28/23 04:20 RBC 3.76 X10^6/uL (4.7-6.0) L 08/28/23 04:20 Hgb 11.9 g/dL (13.5-18.0) L 08/28/23 04:20 Hct 35.6 % (42.0-54.0) L 08/28/23 04:20 MCV 94.8 fL (80.0-100.0) 08/28/23 04:20 MCH 31.6 pg (27.0-34.0) 08/28/23 04:20 MCHC 33.4 g/dL (33.0-35.0) 08/28/23 04:20 RDW 13.4 % (11.6-16.5) 08/28/23 04:20 Plt Count 234 X10^3/uL (150.0-450.0) 08/28/23 04:20 MPV 8.1 fL (7.4-11.0) 08/28/23 04:20 Neut % (Auto) 58.8 % (42.0-75.0) 08/28/23 04:20 Lymph % (Auto) 30.1 % (21.0-51.0) 08/28/23 04:20 [place] % (Auto) 7.7 % (0.0-13.0) 08/28/23 04:20 Eos % (Auto) 2.2 % (0.9-2.9) 08/28/23 04:20 Baso % (Auto) 1.2 % (0.2-1.0) H 08/28/23 04:20 Neut # (Auto) 4.6 x10^3/uL (2.2-4.8) 08/28/23 04:20 Lymph # (Auto) 2.4 X10^3/uL (1.3-2.9) 08/28/23 04:20 [place] # (Auto) 0.6 x10^3/uL (0.3-0.8) 08/28/23 04:20 Eos # (Auto) 0.2 x10^3/uL (0.0-0.2) 08/28/23 04:20 Baso # (Auto) 0.1 X10^3/uL (0.0-0.1) 08/28/23 04:20 Absolute Nucleated RBC 0.1 /100WBC 08/28/23 04:20 Sodium 139 mmol/L (136-145) 08/28/23 04:20 Corrected Sodium TNP 08/28/23 04:20 Potassium 4.6 mmol/L (3.5-5.1) 08/28/23 04:20 Chloride 106 mmol/L (98-107) 08/28/23 04:20 Carbon Dioxide 26.1 mmol/L (21-32) 08/28/23 04:20 BUN 33 mg/dL (7-18) H 08/28/23 04:20 Creatinine 1.19 mg/dL (0.70-1.30) 08/28/23 04:20 Est GFR (MDRD) Af Amer > 60 (>60) 08/28/23 04:20 Est GFR (MDRD) Non-Af > 60 (>60) 08/28/23 04:20 Glucose 106 mg/dL (65-99) H 08/28/23 04:20 Lactic Acid 1.5 mmol/L (0.4-2.0) 08/26/23 19:56 Calcium 8.1 mg/dL (8.5-10.1) L 08/28/23 04:20 Corrected Calcium 9.2 mg/dL (8.5-10.1) 08/28/23 04:20 Magnesium 1.7 mg/dL (2.0-2.9) L 08/28/23 04:20 Total Bilirubin 0.20 mg/dL (0.2-1.0) 08/28/23 04:20 AST 17 Units/L (15-37) 08/28/23 04:20 ALT 10 Units/L (12-78) L 08/28/23 04:20 Alkaline Phosphatase 63 Units/L (46-116) 08/28/23 04:20 Creatine Kinase 69 Units/L (39-308) 08/26/23 19:56 Troponin I High Sens 7.8 ng/L (4.0-60.0) 08/26/23 19:56 Total Protein 6.4 g/dL (6.4-8.2) 08/28/23 04:20 Albumin 2.6 g/dL (3.4-5.0) L 08/28/23 04:20 Globulin 3.8 g/dL (2.5-4.5) 08/28/23 04:20 Albumin/Globulin Ratio 0.7 Ratio (1.1-2.1) L 08/28/23 04:20 Specimen Type Clean catch urine 08/26/23 22:39 Urine Color Yellow (YELLOW) 08/26/23 22:39 Urine Appearance Clear (CLEAR) 08/26/23 22:39 Urine pH 5.0 (5.0 - 8.0) 08/26/23 22:39 Ur Specific [place] 1.015 (1.000-1.030) 08/26/23 22:39 Urine Protein Negative (NEGATIVE) 08/26/23 22:39 Urine Glucose (UA) Negative (NEGATIVE) 08/26/23 22:39 Urine Ketones Negative (NEGATIVE) 08/26/23 22:39 Urine Blood 4+ (NEGATIVE) 08/26/23 22:39 Urine Nitrite Negative (NEGATIVE) 08/26/23 22: Urine Bilirubin Negative (NEGATIVE) 08/26/23 22:39 Urine Urobilinogen Normal (NORMAL) 08/26/23 22:39 Ur Leukocyte Esterase Negative (NEGATIVE) 08/26/23:39 Urine RBC 3-5 /HPF (0-3) A 08/26/23: Urine WBC 0-2 /HPF (0-5) 08/26/23 22:39 Ur Squamous Epith Cells Rare /HPF (NEGATIVE) 08/26/23:39 Urine Bacteria Negative /HPF (NEGATIVE) 08/26/23:39 Ur Culture Indicated? No/not indicated 08/26/23 22:39 Hospital Course: Patient presented to the ER from home with dizziness, weakness, and presyncopal feelings. Also reported some nausea, vomiting, abdominal pain. Was found to have a duodenitis and admitted for IV hydration and IV antibiotics. He rapidly improved and was kept due to couple episodes of low blood pressure yesterday. He had none overnight none this morning and feels ready to go home. He has been eating, drinking, urinating, passing flatus, and ambulating around his room. Discharged home to complete a p.o. course of Flagyl and to follow-up with his PCP.
== END 2023-08-28 12:30 | disposition home or self-care (01) ==
LOC: ICU 18:57 → ER 18:57 → INTOOBSV 08-27 00:47 → OBSVTOIN 08-27 00:47 → ICU 08-27 01:12
PROVIDERS: ADMIT Family Medicine; ATTEND Family Medicine
DX: E86.0 Dehydration; I25.10 Atherosclerotic heart disease of native coronary artery without angina pectoris; E87.1 Hypo-osmolality and hyponatremia; K80.20 Calculus of gallbladder without cholecystitis without obstruction; K29.80 Duodenitis without bleeding; R53.1 Weakness; I95.89 Other hypotension; R10.13 Epigastric pain; E88.09 Other disorders of plasma-protein metabolism, not elsewhere classified; Z72.0 Tobacco use; E83.42 Hypomagnesemia; K44.9 Diaphragmatic hernia without obstruction or gangrene; R55 Syncope and collapse; R42 Dizziness and giddiness